=== PATIENT | male | born 1960 | race Caucasian/White ===

== ENCOUNTER 2016-04-04 20:57 | Emergency (ER) | payer BC, OTHER ==
[~2016-04-04] VITALS: Ht 188 cm; Wt 106.4 kg
[~2016-04-04 20:57] MED LIST: ASCO10003 PO; ASPI-232 PO; CHOLTAB9 PO; CYAN1CAP3 PO; ESCI1TAB10 PO; FENO145T26 PO; GLC/500 PO; LISI-725 PO; LISI-788; LPT40 PO; OMEGCAP2 PO; PANT40TA PO; POTA20TA16 PO
[2016-04-04 21:01] VITALS: TEMP 37.1; Ht 188 cm; Wt 106.4 kg
[2016-04-04] MEDS ORDERED: PRT/20 PO (22:01)
[2016-04-04] MEDS ORDERED: ATOR-26 PO (22:03)
[2016-04-04] MEDS ORDERED: CLOP1TAB15 PO (22:03)
[2016-04-04] MEDS ORDERED: MULT-506 PO (22:03)
[2016-04-04] MEDS ORDERED: METO25TA3 PO (22:03)
[2016-04-04 22:06] LABS: URINE APPEARANCE CLOUDY (CLEAR); URINE BILIRUBIN NEG (NEG); URINE COLOR YELLOW; URINE EPITHELIAL CELL AUTO 0-5 /lpf (0-5); URINE NITRITE NEG (NEG); URINE PH 5.5 (4.5-7.5); URINE SPECIFIC GRAVITY 1.012 (1.000-1.030); UROBILINOGEN NEG (NEG)
[2016-04-04 22:09] LABS: MANUAL MICROSCOPIC REQUIRED? NO; REVIEW REQ? YES
[2016-04-04 22:11] LABS: BASO % 0.5 %; BASO ABS # 0.04 K/uL (0-0.2); COMPLETE YES; EOS % 4.9 %; HEMATOCRIT 42.8 % (42-52); IG% 0.2 %; LYMPH % 19.4 %; LYMPH ABS # 1.69 K/uL (1.2-3.4); MEAN CELL VOLUME 86.5 fL (80-100); MEAN CORPUSCULAR HEMOGLOBIN 31.1 pg (25-34); MEAN PLATELET VOLUME 9.7 fL (7.4-10.4); MONO % 11.3 %; NEUT % 63.7 %; PLATELET COUNT 231 K/uL (130-400); RED BLOOD COUNT 4.95 M/uL (4.7-6.1)
[2016-04-04 22:26] LABS: BUN/CREATININE RATIO 16.8 (10-20); CALCIUM 9.7 mg/dl (8.5-10.1); POTASSIUM 3.5 mmol/L (3.5-5.1)
[2016-04-04 22:42] VITALS: BP 122/66; PULSE 88; O2SAT 96
[2016-04-04] MEDS ORDERED: CIPROFLOXACIN 500 MG TAB PO STA (22:52)
[2016-04-04] MEDS ORDERED: CIPR-255 PO (22:54)
--- NOTE | 2016-04-05 02:39 | EMERGENCY ROOM VISIT NOTE ---
History Report prepared by Haven: Nuvia Whyte Under the Supervision of: Dr. Humble Singh M.D. First contact with patient: 21:29 Chief Complaint: URINARY SYMPTOMS Stated Complaint: UTI Nursing Triage Summary: pt presents with c/i difficulty initiating urine flow, urinary frequency, weak stream, nocturia denies fever or chills pt states symptoms have lasted for the last two weeks pt states he has a long history of microscopic blood in his urine History of Present Illness The patient is a 55 year old male who presents to the Emergency Room with complaints of constant urinary symptoms beginning 2 days ago. 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 He complains of difficulty initiating urine flow, urinary frequency, weak stream, and urinating frequently at night. He denies any fever, vomiting, flank pain, and rectal pain. The patient notes that he had prostatitis 8 years ago and states that his urination at night is causing him concern for an enlarged prostate. Source of History: patient Onset: 2 days ago Position: other (urinary) Timing: constant Associated Symptoms: No fevers, No vomiting Note: He complains of difficulty initiating urine flow, urinary frequency, weak stream , and urinating frequently at night. He denies any flank pain, and rectal pain. Review of Systems See HPI for pertinent positives & negatives. A total of 10 systems reviewed and were otherwise negative. Past Medical & Surgical Medical Problems: (1) Psoriasis Family History Cancer FHx: lung disease Social History Smoking Status: Never Smoker Alcohol Use: occasionally Drug Use: none Marital Status: Housing Status: lives with family Occupation Status: employed Current/Historical Medications Scheduled Aspirin (Aspir-81), 81 MG PO QAM Atorvastatin (Lipitor), 80 MG PO HS Cholecalciferol (D3-1000), 1,000 UNITS PO DAILY Ciprofloxacin Hcl (Cipro), 500 MG PO BID Clopidogrel (Plavix), 75 MG PO QAM Cyanocobalamin (B-12), 1,000 MCG PO DAILY Escitalopram Oxalate (Lexapro), 20 MG PO DAILY Fenofibrate (Tricor), 145 MG PO DAILY Metformin Hcl (Glucophage), 500 MG PO BID Metoprolol Succinate (Toprol Xl), 25 MG PO QAM Multivitamin (Multivitamin), 1 TAB PO QPM [place]itt-3 Fatty Acids (Fish Oil), 1 CAP PO QPM Pantoprazole (Protonix), 20 MG PO QAM Potassium Ext Rel (Klor-Con), 20 MEQ PO QAM Miscellaneous Medications Lisinopril/Hctz (Zestoretic 20MG/25MG) Allergies Coded Allergies: No Known Allergies (Unverified , 04/04/16) Physical Exam Vital Signs Date Time Temp Pulse Resp B/P Pulse Ox O2 Delivery O2 Flow Rate FiO2 04/04/16 22:42 88 20 122/66 96 Room Air 04/04/16 21:01 37.1 91 16 132/82 95 Room Air Physical Exam Constitutional: Vital signs reviewed. Eyes: Pupils are equal round reactive to light. Conjunctiva are noninjected. ENT: Pharynx is clear without erythema or exudate. Mucous membranes are moist. Neck supple without meningeal signs. Respiratory: Clear to auscultation bilaterally. Breath sounds are equal bilaterally. Cardiovascular: Regular rate and rhythm. No rubs or gallops. GI: Soft, nondistended and nontender. Bowel sounds are present. Musculoskeletal: No peripheral edema. No lower extremity tenderness. No CVA tenderness. Integumentary: No cyanosis. Neurological: The patient is awake and alert. No focal deficits. Psychiatric: Normal affect. Medical Decision & Procedures Laboratory Results 04/04/16 21:55 Red Blood Count 4.95, Mean Corpuscular Volume 86.5, Mean Corpuscular Hemoglobin 31.1, Mean Corpuscular Hemoglobin Concent 36.0, Mean Platelet Volume 9.7, Neutrophils (%) (Auto) 63.7, Lymphocytes (%) (Auto) 19.4, Monocytes (%) (Auto) 11.3, Eosinophils (%) (Auto) 4.9, Basophils (%) (Auto) 0.5, Neutrophils # (Auto ) 5.54, Lymphocytes # (Auto) 1.69, Monocytes # (Auto) 0.98, Eosinophils # (Auto ) 0.43, Basophils # (Auto) 0.04 04/04/16 21:55 Test 04/04/16 21:15 04/04/16 21:55 Urine Color YELLOW Urine Appearance CLOUDY (CLEAR) Urine pH 5.5 (4.5-7.5) Urine Specific [place] 1.012 (1.000-1.030) Urine Protein TRACE (NEG) Urine Glucose (UA) NEG (NEG) Urine Ketones NEG (NEG) Urine Occult Blood 3+ (NEG) Urine Nitrite NEG (NEG) Urine Bilirubin NEG (NEG) Urine Urobilinogen NEG (NEG) Urine Leukocyte Esterase LARGE (NEG) Urine WBC (Auto) >30 /hpf (0-5) Urine RBC (Auto) 10-30 /hpf (0-4) Urine Hyaline Casts (Auto) 1-5 /lpf (0-5) Urine Epithelial Cells (Auto) 0-5 /lpf (0-5) Urine Bacteria (Auto) 1+ (NEG) Urine Yeast (Auto) PRESENT (NONE PRSENT) White Blood Count 8.70 K/uL (4.8-10.8) Red Blood Count 4.95 M/uL (4.7-6.1) Hemoglobin 15.4 g/dL (14.0-18.0) Hematocrit 42.8 % (42-52) Mean Corpuscular Volume 86.5 fL (80-100) Mean Corpuscular Hemoglobin 31.1 pg (25-34) Mean Corpuscular Hemoglobin Concent 36.0 g/dl (32-36) Platelet Count 231 K/uL (130-400) Mean Platelet Volume 9.7 fL (7.4-10.4) Neutrophils (%) (Auto) 63.7 % Lymphocytes (%) (Auto) 19.4 % Monocytes (%) (Auto) 11.3 % Eosinophils (%) (Auto) 4.9 % Basophils (%) (Auto) 0.5 % Neutrophils # (Auto) 5.54 K/uL (1.4-6.5) Lymphocytes # (Auto) 1.69 K/uL (1.2-3.4) Monocytes # (Auto) 0.98 K/uL (0.11-0.59) Eosinophils # (Auto) 0.43 K/uL (0-0.5) Basophils # (Auto) 0.04 K/uL (0-0.2) RDW Standard Deviation 38.7 fL (36.4-46.3) RDW Coefficient of Variation 12.2 % (11.5-14.5) Immature Granulocyte % (Auto) 0.2 % Immature Granulocyte # (Auto) 0.02 K/uL (0.00-0.02) Anion Gap 16.0 mmol/L (3-11) Est Creatinine Clear Calc Drug Dose 111.0 ml/min Estimated GFR () 99.2 Estimated GFR (Non- 85.5 BUN/Creatinine Ratio 16.8 (10-20) Calcium Level 9.7 mg/dl (8.5-10.1) Laboratory results as reviewed by me. Medications Administered Medications (Trade) Dose Ordered Sig/Blair Route Start Time Stop Time Status Last Admin Dose Admin Ciprofloxacin (Cipro Tab) 500 mg NOW STAT PO 04/04/16 22:52 04/04/16 22:53 DC 04/04/16 22:52 500 MG ED Course 2128: The patient was evaluated in room B12B. A complete history and physical exam was performed. 2250: I talked to the patient about his test results. 225: Cipro Tab 500mg PO. 2318: Upon reevaluation, the patient appeared to have improvement of his symptoms. I discussed tonight's findings with the patient. He verbalized agreement of the treatment plan. The patient was discharged home. Medical Decision This is a 55-year-old male who presents with urinary symptoms. Differential diagnosis includes UTI, pyelonephritis, renal failure, prostatitis. I did perform a limited focused review of portions of the patient's old chart on the electronic medical record. The patient has had no recent pertinent visits to this hospital. I did evaluate the patient as noted above. IV access was established. I did order and personally review the patient's urinalysis as described above. A urine culture was sent. I did order and review the patient's blood work as noted in the electronic medical record. Renal function is normal. His white blood cell count is not elevated. I did discuss the test results with the patient. He was treated with Cipro. He was discharged with a prescription for Cipro. He was advised follow up with his doctor and given return instructions as outlined below. Impression Primary Impression: Urinary tract infection Scribe Attestation The scribe's documentation has been prepared under my direct and personally reviewed by me in its entirety. I confirm that the note above accurately reflects all work, treatment, procedures, and medical decision making performed by me. Departure Information Dispostion Home / Self-Care Prescriptions Ciprofloxacin Hcl (CIPRO) 500 Mg Tab 500 MG PO BID, #14 TAB Prov: Humble Singh M.D. 04/04/16 Referrals Brennan Alberts Jr,D.O. (PCP) Forms HOME CARE DOCUMENTATION FORM, IMPORTANT VISIT INFORMATION Patient Instructions My [facility], UTI Additional Instructions You have been examined and treated today on an emergency basis only. This is not a substitute for, or an effort to provide, complete comprehensive medical care. It is impossible to recognize and treat all injuries or illnesses in a single emergency department visit. It is therefore important that you follow up closely with your physician. Call as soon as possible for an appointment. Return for worsening symptoms or if you develop fever, vomiting, abdominal pain or any other concerning symptoms.
== END 2016-04-04 23:04 | disposition home or self-care (01) ==
LOC: C.EDB 20:58
DX: N39.0 Urinary tract infection, site not specified (principal); Z79.82 Long term (current) use of aspirin; Z79.84 Long term (current) use of oral hypoglycemic drugs; Z79.899 Other long term (current) drug therapy; Z80.9 Family history of malignant neoplasm, unspecified

== ENCOUNTER → 2017-03-03 | Outpatient (CLI) | payer OTHER ==
[~2017-03-03] MED LIST changes: -ASCO10003 PO; +ATOR-26 PO; +CIPR-255 PO; +CLOP1TAB15 PO; -LISI-725 PO; -LPT40 PO; +METO25TA3 PO; +MULT-506 PO; -PANT40TA PO; +PRT/20 PO
--- NOTE | 2017-03-03 09:45 | DIAGNOSTIC IMAGING REPORT ---
R RIBS UNILATERAL MIN 2 VIEWS CLINICAL HISTORY: Right flank pain. Dyspnea. COMPARISON STUDY: No previous studies for comparison. FINDINGS: There is no right pneumothorax. Linear right lower lung opacity suggests atelectasis. No definite acute right rib fracture is identified. There is subtle cortical irregularity of the anterior right 10th rib. IMPRESSION: 1. Subtle cortical irregularity of the anterior right 10th rib. This represents an age indeterminate but likely old nondisplaced rib fracture. 2. No right pneumothorax. Electronically signed by: Sukhjinder Willis M.D. 03/03/2017 9:44 AM Dictated Date/Time: 03/03/2017 9:41 AM
--- NOTE | 2017-03-03 09:48 | DIAGNOSTIC IMAGING REPORT ---
CHEST 2 VIEWS ROUTINE CLINICAL HISTORY: Right flank pain. Dyspnea. COMPARISON STUDY: No previous studies for comparison. FINDINGS: There is no pneumothorax or pleural effusion. Linear right lower lung opacity suggest atelectasis. There is no consolidation to suggest pneumonia. Cardiomediastinal silhouette is normal. There is no evidence for pulmonary edema. Lateral view demonstrates a nondisplaced lower rib fracture with suspected callus formation. IMPRESSION: 1. No pneumothorax. 2. Nondisplaced lower rib fracture shown only on lateral projection which suggests a subacute healing rib fracture. This could account for flank pain. Electronically signed by: Sukhjinder Willis M.D. 03/03/2017 9:47 AM Dictated Date/Time: 03/03/2017 9:44 AM
== END | disposition home or self-care (01) ==
LOC: C.RAD1850 09:23
DX: R10.9 Unspecified abdominal pain (principal); R06.00 Dyspnea, unspecified